=== PATIENT | female | born 1985 | race Caucasian/White ===

== ENCOUNTER 2017-12-27 22:01 | Emergency (ER) | payer MEDICAID ==
[~2017-12-27] VITALS: Ht 162.6 cm; Wt 53.2 kg
[2017-12-27 23:50] VITALS: BP 121/78
== END 2017-12-28 00:44 | disposition home or self-care (01) ==
LOC: EMS 22:04
DX: S63.601A Unspecified sprain of right thumb, initial encounter (principal); I10 Essential (primary) hypertension; W19.XXXA Unspecified fall, initial encounter; Y93.89 Activity, other specified; Y92.89 Other specified places as the place of occurrence of the external cause; Y99.8 Other external cause status
CPT/HCPCS: 29280; 99284